=== PATIENT | female | born 1995 | race Caucasian/White ===

== ENCOUNTER 2023-06-27 14:30 | Emergency (ER) | payer OTHER, MEDICAID, SELFPAY ==
[2023-06-27 14:43] VITALS: BP 98/50; PULSE 74; RESP 18; TEMP 36.1; O2SAT 99
--- NOTE | 2023-06-27 17:15 | PC.NURSE ---
Left pedal pulse palpated as strong. Cap refill in left big toe <2 seconds
[2023-06-27] MEDS: KETOROLAC 30 MG/ML VIAL IM (17:38)
[2023-06-27] MEDS: predniSONE 20 MG TABLET 40 MG PO (17:38)
[2023-06-27] MEDS: diazePAM 10 MG/2 ML SYRINGE 5 MG IM (17:39)
--- NOTE | 2023-06-27 18:00 | ED.BACK ---
HPI - Back Pain/Injury <Melonie Cannon PA-C - Last Filed: 06/27/23 18:47> General Chief Complaint: Back Pain/Injury Stated Complaint: siatic nerve extreame pain lower back and side Time Seen by Provider: 06/27/23 17:06 History of Present Illness HPI Narrative: Patient is a 27-year-old female who presents with low back pain and left hip pain. The pain radiates down her left leg. She has a history of low back pain; she reports her pain is usually a 7/10. She does not identify any preceding injury or movement that started this flare of pain. She denies any loss of bowel or bladder control, denies saddle anesthesia. She is not taken any pain medicine today. In the past she has taken Tylenol, ibuprofen, Excedrin and gabapentin. She recently discontinued her gabapentin because she felt like it did not help. She recently moved here and has not yet established with a PCP. Related Data Previous Rx's Medication Instructions Recorded cyclobenzaprine 5 mg tablet 5 mg PO TID PRN muscle spasm #10 06/27/23 tabs prednisone 20 mg tablet 40 mg (2 x 20 mg) PO DAILY #8 tabs 06/27/23 Allergies Allergy/AdvReac Type Severity Reaction Status Date / Time No Known Drug Allergies Allergy Verified 06/27/23 14:45 Review of Systems <Melonie Cannon PA-C - Last Filed: 06/27/23 18:47> Review of Systems ROS Unobtainable: All systems reviewed & are unremarkable except as noted in HPI and below Patient History <Melonie Cannon PA-C - Last Filed: 06/27/23 18:47> Social History Smoking Status: Current every day smoker Smoking Status: Current every day smoker Substance Use Type: marijuana Exam <Melonie Cannon PA-C - Last Filed: 06/27/23 18:47> Narrative Exam Narrative: GENERAL: 27 year old patient appears stated age. Well-developed patient, appears uncomfortable in wheelchair. NEURO: AOx3. HEAD: Atraumatic. Normocephalic. EYES: Pupils equal round and reactive. Extraocular motions intact. No scleral icterus. No injection or drainage. ENT: Nose without bleeding or purulent drainage. Airway patent. RESPIRATORY: No increased work of breathing SPINE: No midline spinal tenderness, pain with palpation of the soft tissues of the left lower back SKIN: No rash or erythema of visible areas Initial Vital Signs Initial Vital Signs: Vital Signs Temperature 97 F L 06/27/23 14:43 Pulse Rate 74 06/27/23 14:43 Respiratory Rate 18 06/27/23 14:43 Blood Pressure 98/50 L 06/27/23 14:43 Pulse Oximetry 99 06/27/23 14:43 Oxygen Delivery Method Room Air 06/27/23 14:43 <Leonides Campbell DO - Last Filed: 06/27/23 18:50> Initial Vital Signs Initial Vital Signs: Vital Signs Temperature 97 F L 06/27/23 14:43 Pulse Rate 74 06/27/23 14:43 Respiratory Rate 18 06/27/23 14:43 Blood Pressure 98/50 L 06/27/23 14:43 Pulse Oximetry 99 06/27/23 14:43 Oxygen Delivery Method Room Air 06/27/23 14:43 Course <Melonie Cannon PA-C - Last Filed: 06/27/23 18:47> Orders Ordered: Discontinued Medications Diazepam (Diazepam 10 Mg/2 Ml Syringe) 5 mg IM NOW ONE Stop: 06/27/23 17:21 Last Admin: 06/27/23 17:39 Dose: 5 mg Documented By: PRANAV Ketorolac Tromethamine (Ketorolac 30 Mg/Ml Vial) 30 mg IM NOW ONE Stop: 06/27/23 17:21 Last Admin: 06/27/23 17:38 Dose: 30 mg Documented By: PRANAV Prednisone (Prednisone 20 Mg Tablet) 40 mg PO NOW ONE Stop: 06/27/23 17:21 Last Admin: 06/27/23 17:38 Dose: 40 mg Documented By: SB Vital Signs Vital signs: Vital Signs - 8 hr 06/27/23 14:43 06/27/23 18:10 06/27/23 18:32 Temperature 97 F L Pulse Rate 74 64 69 Respiratory Rate 18 18 14 Blood Pressure 98/50 L 110/56 L 105/65 Pulse Oximetry 99 98 99 Oxygen Delivery Method Room Air Room Air Room Air <DO Patrizia Malave Last Filed: 06/27/23 18:50> Orders Ordered: Discontinued Medications Diazepam (Diazepam 10 Mg/2 Ml Syringe) 5 mg IM NOW ONE Stop: 06/27/23 17:21 Last Admin: 06/27/23 17:39 Dose: 5 mg Documented By: SB Ketorolac Tromethamine (Ketorolac 30 Mg/Ml Vial) 30 mg IM NOW ONE Stop: 06/27/23 17:21 Last Admin: 06/27/23 17:38 Dose: 30 mg Documented By: SB Prednisone (Prednisone 20 Mg Tablet) 40 mg PO NOW ONE Stop: 06/27/23 17:21 Last Admin: 06/27/23 17:38 Dose: 40 mg Documented By: SB Vital Signs Vital signs: Vital Signs - 8 hr 06/27/23 14:43 06/27/23 18:10 06/27/23 18:32 Temperature 97 F L Pulse Rate 74 64 69 Respiratory Rate 18 18 14 Blood Pressure 98/50 L 110/56 L 105/65 Pulse Oximetry 99 98 99 Oxygen Delivery Method Room Air Room Air Room Air MDM - Back Pain/Injury <Melonie Cannon PA-C - Last Filed: 06/27/23 18:47> MDM Narrative Medical decision making narrative: Multiple etiologies for patient's symptoms considered including, but not limited to: Musculoskeletal low back pain, fracture, dislocation, disc injury No red flags for cauda equina, no acute injury/trauma to suggest bony injury. Discussed possible treatment strategies. Patient would like to try Toradol, prednisone and Valium. Medications administered and patient tolerated well. She is anxious to go home and take care of her kids. I will send prescriptions for steroids and muscle relaxers to her pharmacy-discussed safety precautions in terms of combining medications. Patient states understanding. Encouraged her to establish care with a primary care for further evaluation and treatment of her chronic back pain. Discharge Plan Departure Patient Disposition: Home Clinical Impression: Acute back pain with sciatica Qualifiers: Laterality: left Qualified Code(s): M54.42 - Lumbago with sciatica, left side Instructions: DI for Back Pain With Sciatica Activity Restrictions/Additional Instructions: *You have been diagnosed with low back pain with sciatica. Please continue to take ibuprofen 600mg every 6 hours and apply ice for 15 minutes every 2 hours while awake. I strongly encourage you to establish care with a primary care provider and seek further diagnostics for your chronic low back pain. *What to do: *Please continue to take your regular medications as directed. [x] New medication prescriptions sent to your pharmacy: [[facility]] [ ] New medication written as a paper prescription [ ] No new medications given *Please follow up with your primary care provider in 2-3 days, call for an appointment. Let them know you were seen in the Emergency Department and that we ask that you be seen in follow up. We will electronically transmit a record of today's note if your PCP is in our system *If you do not have a primary care provider please contact the [facility] Resource line at [phone]. They will ask some questions about your medical history and help get you set up with a doctor in the community. *Return to Emergency Department if you should have any new, worsening or concerning symptoms, such as [fever greater than 101 F, shaking chills, worsening pain, persistent vomiting or other concerning symptoms]. Prescriptions: New cyclobenzaprine 5 mg tablet 5 mg PO TID PRN (Reason: muscle spasm) Qty: 10 0RF prednisone 20 mg tablet 40 mg PO DAILY Qty: 8 0RF Stand Alone Forms: Patient Portal/API ED Sign-out <Leonides Campbell, DO - Last Filed: 06/27/23 18:50> [facility] Dr Campbell Co-Sign Statement: I was available for consultation during this patient's emergency department visit. This chart is signed by myself for administrative purposes only. I did not have direct contact with this patient during this visit. They were seen independently by the APC.
[2023-06-27 18:10] VITALS: BP 110/56; PULSE 64; RESP 18; O2SAT 98
[2023-06-27 18:32] VITALS: BP 105/65; PULSE 69; RESP 14; O2SAT 99
== END 2023-06-27 18:34 | disposition home or self-care (01) ==
PROVIDERS: Emergency Provider Physician Assistant
DX: M54.42 Lumbago with sciatica, left side (principal)
CPT/HCPCS: 96372; 99283; J1885; J3360

== ENCOUNTER 2023-11-28 14:37 | Emergency (ER) | payer OTHER, MEDICAID, SELFPAY ==
[2023-11-28 14:52] VITALS: BP 113/51; PULSE 88; RESP 20; TEMP 37; O2SAT 98; BMI 17.8
[2023-11-28 16:29] VITALS: BP 103/52; PULSE 77; RESP 20; O2SAT 100
--- NOTE | 2023-11-28 16:31 | ED_ITS ---
HPI - Headache <Melonie Rosales PA-C - Last Filed: 11/29/23 19:55> General Chief Complaint: Headache Stated Complaint: neck, jaw and ear pain Time Seen by Provider: 11/28/23 15:49 Mode of arrival: Ambulatory History of Present Illness HPI Narrative: 28-year-old female with history of migraines with no previous prescription for migraine medication presents with concern for right ear jaw and right face pain for the past 6 days. Patient states it has been worsening and has become so severe that she can not tolerate it anymore hence coming into the emergency department. She is unsure exactly where it started but thinks it is mostly centered at the back of her jaw at this time. She does state it seems worse with eating or with moving her jaw. She says that she did have headache that felt similar to severe headaches/migraines that she has had in the past that was on the right side behind her right eye and in her right cheek but then her symptoms change to be more in her jaw in the back on the right and also with pain radiating and shooting into her right ear. She also describes tension at the back of her head at the base of her head where her neck meets her head. She feels she has muscle tightness there. She did recently have an upper respiratory infection with cough and congestion which has largely resolved. She denies fevers, chills, numbness or tingling of her face, one-sided weakness, speech changes or any other symptoms. Related Data Previous Rx's Medication Instructions Recorded cyclobenzaprine 5 mg tablet 5 mg PO TID PRN muscle spasm #10 06/27/23 tabs prednisone 20 mg tablet 40 mg (2 x 20 mg) PO DAILY #8 tabs 06/27/23 amoxicillin 875 mg-potassium 1 tab PO Q12H 10 days #20 tabs 11/28/23 clavulanate 125 mg tablet ondansetron 4 mg disintegrating 4 mg PO Q8H PRN nausea and 11/28/23 tablet vomiting 7 days #21 tabs huaqwvc-dkhfcvuwex-ZXR-caffeine 30 1 cap PO Q4-6H PRN headache #21 11/29/23 mg-50 mg-325 mg-40 mg capsule caps Allergies Allergy/AdvReac Type Severity Reaction Status Date / Time No Known Drug Allergies Allergy Verified 06/27/23 14:45 Review of Systems <Melonie Rosales PA-C - Last Filed: 11/29/23 19:55> Review of Systems Narrative: See HPI Patient History <Melonie Rosales PA-C - Last Filed: 11/29/23 19:55> Social History Smoking Status: Current every day smoker Smoking Status: Current every day smoker tobacco type: cigarettes alcohol intake frequency: holidays/special occasions only Substance Use Type: marijuana Exam <Melonie Rosales PA-C - Last Filed: 11/29/23 19:55> Narrative Exam Narrative: GENERAL: [28] year old patient appears stated age. Well-developed patient, in moderate distress; rocking and holding her face with her hand on the right. HEAD: Atraumatic. Normocephalic. EYES: Pupils equal round and reactive. Extraocular motions intact. No scleral icterus. No injection or drainage. There is tenderness present of the right maxillary sinus exquisitely tender with palpation and percussion, some tenderness present at the TMJ. Bilateral ear canals have clear fluid effusions with bubbles present no bulging or retraction. Patient has some pain with manipulation of the pinna and tragus on the right. There is no mastoid tenderness inflammation or swelling. No lymphadenopathy noted. Right frontal sinus is mildly tender with palpation/percussion ENT: Nose without bleeding, purulent drainage. Throat without erythema, tonsillar hypertrophy or exudate. Airway patent. NECK: Trachea midline. Non tender CARDIOVASCULAR: Regular rate and rhythm without murmurs, gallops, or rubs. RESPIRATORY: Clear to auscultation. Breath sounds equal bilaterally. No wheezes, rales, or rhonchi. EXTREMITIES: No edema or joint tenderness. BACK: Neck is pain-free with normal range of motion no nuchal rigidity, there is some tenderness with palpation of the base of the skull posteriorly upper neck muscles/paraspinal. Nontender without deformity or crepitance. No flank tenderness. NEURO: AOx3. SKIN: No rash or erythema of visible areas Initial Vital Signs Initial Vital Signs: Vital Signs Temperature 98.6 F 11/28/23 14:52 Pulse Rate 88 11/28/23 14:52 Respiratory Rate 20 11/28/23 14:52 Blood Pressure 113/51 L 11/28/23 14:52 Pulse Oximetry 98 11/28/23 14:52 Oxygen Delivery Method Room Air 11/28/23 14:52 <Patricia Alberts MD - Last Filed: 11/30/23 20:37> Initial Vital Signs Initial Vital Signs: Vital Signs Temperature 98.6 F 11/28/23 14:52 Pulse Rate 88 11/28/23 14:52 Respiratory Rate 20 11/28/23 14:52 Blood Pressure 113/51 L 11/28/23 14:52 Pulse Oximetry 98 11/28/23 14:52 Oxygen Delivery Method Room Air 11/28/23 14:52 Course <Melonie Rosales PA-C - Last Filed: 11/29/23 19:55> Orders Ordered: Discontinued Medications Dexamethasone (Dexamethasone 10 Mg/Ml Vial) 10 mg IV NOW ONE Stop: 11/28/23 16:47 Last Admin: 11/28/23 17:01 Dose: 10 mg Documented By: SALLY Diphenhydramine HCl (Diphenhydramine 50 Mg/Ml Vial) 25 mg IV NOW ONE Stop: 11/28/23 16:47 Last Admin: 11/28/23 17:02 Dose: 25 mg Documented By: SALLY Sodium Chloride (Normal Saline 0.9%) 1,000 mls @ 1,000 mls/hr IV BOLUS ONE Stop: 11/28/23 17:45 Last Infusion: 11/28/23 18:07 Dose: Infused Documented By: Admin: 11/28/23 17:04 Dose: 1,000 mls/hr Documented By: SALLY Ketorolac Tromethamine (Ketorolac 30 Mg/Ml Vial) 15 mg IV NOW ONE Stop: 11/28/23 16:47 Last Admin: 11/28/23 17:00 Dose: 15 mg Documented By: SALLY Metoclopramide HCl (Metoclopramide 10 Mg/2 Ml Inj) 5 mg IV NOW ONE Stop: 11/28/23 16:47 Last Admin: 11/28/23 16:58 Dose: 5 mg Documented By: NL Vital Signs Vital signs: Vital Signs - 8 hr 11/28/23 14:52 Temperature 98.6 F Pulse Rate 88 Respiratory Rate 20 Blood Pressure 113/51 L Pulse Oximetry 98 Oxygen Delivery Method Room Air <Patricia Alberts MD - Last Filed: 11/30/23 20:37> Orders Ordered: Discontinued Medications Dexamethasone (Dexamethasone 10 Mg/Ml Vial) 10 mg IV NOW ONE Stop: 11/28/23 16:47 Last Admin: 11/28/23 17:01 Dose: 10 mg Documented By: SALLY Diphenhydramine HCl (Diphenhydramine 50 Mg/Ml Vial) 25 mg IV NOW ONE Stop: 11/28/23 16:47 Last Admin: 11/28/23 17:02 Dose: 25 mg Documented By: SALLY Sodium Chloride (Normal Saline 0.9%) 1,000 mls @ 1,000 mls/hr IV BOLUS ONE Stop: 11/28/23 17:45 Last Infusion: 11/28/23 18:07 Dose: Infused Documented By: Admin: 11/28/23 17:04 Dose: 1,000 mls/hr Documented By: SALLY Ketorolac Tromethamine (Ketorolac 30 Mg/Ml Vial) 15 mg IV NOW ONE Stop: 11/28/23 16:47 Last Admin: 11/28/23 17:00 Dose: 15 mg Documented By: SALLY Metoclopramide HCl (Metoclopramide 10 Mg/2 Ml Inj) 5 mg IV NOW ONE Stop: 11/28/23 16:47 Last Admin: 11/28/23 16:58 Dose: 5 mg Documented By: SALLY Vital Signs Vital signs: Vital Signs - 8 hr 11/28/23 14:52 Temperature 98.6 F Pulse Rate 88 Respiratory Rate 20 Blood Pressure 113/51 L Pulse Oximetry 98 Oxygen Delivery Method Room Air MDM - Headache <Melonie Rosales PA-C - Last Filed: 11/29/23 19:55> Differential Diagnosis Differential diagnosis: Likely migraine, tension headache, headache, sinusitis and other (Bacterial sinusitis) Lab Data Attestation: I reviewed the patient's lab results. MDM Narrative Medical decision making narrative: This is a 28-year-old female presenting with concern for possible migraine, headache in the setting of upper respiratory infection recently, with right- sided jaw ear and face pain. Patient has no inflammation present suggesting a abscess or cellulitis. She does have fluid effusions bilaterally in the middle ear, she also has maxillary and frontal sinus tenderness. The teeth are without tenderness and there is no swelling of the gums. Etiology of her pain and symptoms is not entirely clear, she is treated with a migraine cocktail in the emergency department and does have improvement of her symptoms. Prescription for codeine butalbital ASA caffeine as well as prescription for Augmentin as have some concern this could be a sinus infection. Patient is advised to follow up closely with PCP, return to the emergency department if she has persistent or worsening symptoms. Based on exam and history I have low suspicion for meningitis. Return precautions provided, follow-up plan discussed, all questions answered Discharge Plan Departure Patient Disposition: Home Clinical Impression: Mandible pain, Acute effusion of both middle ears Migraine Qualifiers: Migraine type: unspecified Status migrainosus presence: without status migrainosus Intractability: not intractable Qualified Code(s): G43.909 - Migraine, unspecified, not intractable, without status migrainosus Instructions: DI for Migraine Activity Restrictions/Additional Instructions: *You have been diagnosed with [migraine, jaw pain] *What to do: *Please continue to take your regular medications as directed. [2 ] New medication prescriptions sent to your pharmacy: [Fioricet for headache/migraine pain, Augmentin antibiotic] [ ] New medication written as a paper prescription [ ] No new medications given *Please follow up with your primary care provider in 2-3 days, call for an appointment. Let them know you were seen in the Emergency Department and that we ask that you be seen in follow up. We will electronically transmit a record of today's note if your PCP is in our system. You came in today with concern for worsening pain in your right back jaw right cheek and pain radiating to her right ear. You do have fluid effusions behind both ears but these do not look infected. I am concerned you may have a sinus infection which could be con tributing to her symptoms. Other potential sources of your symptoms could include TMJ, or a dental infection. We did treat you for a migraine today and your symptoms improved quite a bit in the emergency department. I am prescribing you medicine for migraine and also an antibiotic to treat if this is a dental or sinus infection. Please take the antibiotic for the full course even if you are feeling better. If you develop new symptoms or ear pain returns and is too severe to eat or worsens and is not controlled with [id number] medicines and or the Fioricet prescribed please make sure you get re-evaluated. *If you do not have a primary care provider please contact the [facility] Resource line at [phone]. They will ask some questions about your medical history and help get you set up with a doctor in the community. *Return to Emergency Department if you should have any new, worsening or concerning symptoms, such as [fever greater than 101 F, shaking chills, worseni ng pain, persistent vomiting or other bothersome symptoms] Prescriptions: New amoxicillin-pot clavulanate 875-125 mg tablet 1 tab PO Q12H 10 Days Qty: 20 0RF ondansetron 4 mg tablet,disintegrating 4 mg PO Q8H PRN (Reason: nausea and vomiting) 7 Days Qty: 21 0RF colhcsv-hooxtmjdwy-JRQ-caff [id number] mg capsule 1 cap PO Q4-6H PRN (Reason: headache) Qty: 21 0RF No Action cyclobenzaprine 5 mg tablet 5 mg PO TID PRN (Reason: muscle spasm) Qty: 10 0RF prednisone 20 mg tablet 40 mg PO DAILY Qty: 8 0RF Referrals: Miscellaneous,Doctor, [Primary Care Provider] - Stand Alone Forms: Patient Portal/API ED Sign-out <Patricia Alberts MD - Last Filed: 11/30/23 20:37> Cosign ED Attending Cosignature Attestation: I did not see this patient. I was available all times for consultation.
[2023-11-28] MEDS: METOCLOPRAMIDE 10 MG/2 ML INJ 5 MG IV (16:58)
[2023-11-28] MEDS: KETOROLAC 30 MG/ML VIAL 15 MG IV (17:00)
[2023-11-28] MEDS: DEXAMETHASONE 10 MG/ML VIAL IV (17:01)
[2023-11-28] MEDS: diphenhydrAMINE 50 MG/ML VIAL 25 MG IV (17:02)
[2023-11-28] MEDS: SODIUM CHLORIDE 0.9% 1,000 ML 1000 ML IV (17:04)
--- NOTE | 2023-11-28 17:19 | PC.NURSE ---
pt states she has a pain, points to in front of ear/jaw joint. it shoots into her ear and down under her jaw and around to the back of her head/neck. states it hurts to open her jaw so she has not been eating or drinking too much. patient is talking with little to no jaw movement, clutching the side of her face. states she has headache that is in front but also in the occipital region. tender upon palpation to frontal sinuses and maxillary. denies ear pain on left side. pt has taken ibuprofen and tylenol at home with no relief, tried warm and cold compresses, and tried laying in dark room with little stimuli. pt is here for help to manage this pain. pt is rocking back in forth in chair, tapping foot on ground and whimpering while clutching face during entire exam.
[2023-11-28 18:07] VITALS: BP 99/54; PULSE 70; RESP 16; O2SAT 99
== END 2023-11-28 18:11 | disposition home or self-care (01) ==
PROVIDERS: Emergency Provider Student in an Organized Health Care Education/Training Program
DX: G43.909 Migraine, unspecified, not intractable, without status migrainosus (principal); H93.8X3 Other specified disorders of ear, bilateral
CPT/HCPCS: 36415; 96374; 96375; 99283; 99284; J1100; J1200; J1885; J2765

== ENCOUNTER 2024-08-11 19:47 | Emergency (ER) | payer OTHER, SELFPAY ==
[2024-08-11 19:50] VITALS: BP 130/72; PULSE 65; RESP 22; TEMP 36.6; O2SAT 97; BMI 17.6
--- NOTE | 2024-08-11 23:05 | ED.HA ---
HPI - Headache General Chief Complaint: Headache Stated Complaint: migraine t-4 Time Seen by Provider: 08/11/24 23:04 Mode of arrival: Ambulatory History of Present Illness HPI Narrative: Patient is a healthy 28-year-old female history of migraine headaches. Presenting today with headache. Reports has been ongoing for the last 4 days she has been taking Tylenol it has not really helping. She previously was prescribed migraine medication which helped a lot but she does not know what it is in his out of it. She does not have any nausea or vomiting. She was sitting in a dark room very sensitive to light. This feels like a typical migraine headache for her. No fever chills no significant neck pain Related Data Previous Rx's Medication Instructions Recorded cyclobenzaprine 5 mg tablet 5 mg PO TID PRN muscle spasm #10 06/27/23 tabs prednisone 20 mg tablet 40 mg (2 x 20 mg) PO DAILY #8 tabs 06/27/23 oaonjau-diyxresrob-XAV-caffeine 30 1 cap PO Q4-6H PRN headache #21 11/29/23 mg-50 mg-325 mg-40 mg capsule caps Allergies Allergy/AdvReac Type Severity Reaction Status Date / Time No Known Drug Allergies Allergy Verified 06/27/23 14:45 Patient History Social History Smoking Status: Current every day smoker Smoking Status: Current every day smoker tobacco type: cigarettes and vaping alcohol intake frequency: holidays/special occasions only Exam Initial Vital Signs Initial Vital Signs: Vital Signs Temperature 97.8 F 08/11/24 19:50 Pulse Rate 65 08/11/24 19:50 Respiratory Rate 22 08/11/24 19:50 Blood Pressure 130/72 08/11/24 19:50 Pulse Oximetry 97 08/11/24 19:50 Oxygen Delivery Method Room Air 08/11/24 19:50 GENERAL: Alert 28-year-old female in dark room appears uncomfortable and in no acute distress. HEENT: Head atraumatic,EOMI, pupils reactive, face symmetric, moist mucous membranes NECK supple no vertebral tenderness CARDIOVASCULAR: Regular rate and rhythm without murmurs, rubs or gallops. RESPIRATORY: Breath sounds equal bilaterally, no wheezes rales or rhonchi. ABDOMEN: Soft, nontender. Normoactive bowel sounds all 4 quadrants. No guarding or rebound. EXTREMITIES: Normal range of motion, no clubbing or edema. Neurovascularly intact NEUROLOGICAL: Alert and oriented x4.Normal gait and speech. Cranial nerves II through XII grossly intact. Strategy Consultant strength equal bilaterally SKIN: Warm, dry, no laceration, no petechiae, no rashes or lesions. Course Orders Ordered: Discontinued Medications Diphenhydramine HCl (Diphenhydramine 50 Mg/Ml Vial) 25 mg IV NOW ONE Stop: 08/11/24 23:10 Last Admin: 08/11/24 23:22 Dose: 25 mg Documented By: KOLE Ketorolac Tromethamine (Ketorolac 30 Mg/Ml Vial) 15 mg IV NOW ONE Stop: 08/11/24 23:10 Last Admin: 08/11/24 23:23 Dose: 15 mg Documented By: KOLE Lorazepam (Lorazepam 2 Mg/Ml Inj) 0.5 mg IV NOW ONE Stop: 08/11/24 23:42 Prochlorperazine (Prochlorperazine 10 Mg/2 Ml Vial) 10 mg IV NOW ONE Stop: 08/11/24 23:10 Last Admin: 08/11/24 23:24 Dose: 10 mg Documented By: KOLE Vital Signs Vital signs: Vital Signs - 8 hr 08/11/24 19:50 08/11/24 23:28 Temperature 97.8 F Pulse Rate 65 52 L Respiratory Rate 22 16 Blood Pressure 130/72 103/57 L Pulse Oximetry 97 97 Oxygen Delivery Method Room Air Room Air MDM - Headache Lab Data Labs: Point of Care Testing Test Results Negative [facility] Narrative Medical decision making narrative: 28-year-old female history of migraines presenting today with a migraine ongoing for 4 days. She has in a dark room appears uncomfortable no significant nausea or vomiting. She has no focal deficits. At this time no need for head CT. She was given Toradol Benadryl and Compazine almost immediately after she started feeling very anxious she wanted to leave. She denies feeling like her skin is crawling. Not sure if this is extrapyramidal effects versus just worsening anxiety. I have spoken with her offered her more medication. She gets very anxious with medication. At this time she really just wants to go home. This seems to be a typical migraine headache. No need for blood work imaging or further workup. Discharge Plan Departure Patient Disposition: Home Clinical Impression: Migraine Instructions: DI for Migraine Activity Restrictions/Additional Instructions: *You have been diagnosed with migraine *What to do: Hope you go home sleep in the your headache feels better. Make sure that you stay hydrated *Continue to take medications as directed Tylenol Motrin as needed for pain *Follow up with your primary care provider in 2-3 days or call [phone] *Return to ER if you should have worsening pain persistent vomiting or any new, worsening or concerning symptoms Prescriptions: No Action cyclobenzaprine 5 mg tablet 5 mg PO TID PRN (Reason: muscle spasm) Qty: 10 0RF prednisone 20 mg tablet 40 mg PO DAILY Qty: 8 0RF xuwqqel-vlecyhvpsr-VRW-caff [id number] mg capsule 1 cap PO Q4-6H PRN (Reason: headache) Qty: 21 0RF Referrals: Miscellaneous,Doctor, [Primary Care Provider] - Stand Alone Forms: Patient Portal/API/Survey
[2024-08-11] MEDS: diphenhydrAMINE 50 MG/ML VIAL 25 MG IV (23:22)
[2024-08-11] MEDS: KETOROLAC 30 MG/ML VIAL 15 MG IV (23:23)
[2024-08-11] MEDS: PROCHLORPERAZINE 10 MG/2 ML VIAL IV (23:24)
[2024-08-11 23:28] VITALS: BP 103/57; PULSE 52; RESP 16; O2SAT 97
--- NOTE | 2024-08-11 23:45 | PC.NURSE ---
Patient states wanting to go home, patient;s mother at bedside. Patient alert and states feeling anxious. Physician aware.
== END 2024-08-11 23:55 | disposition home or self-care (01) ==
PROVIDERS: Emergency Provider Emergency Medicine
DX: G43.909 Migraine, unspecified, not intractable, without status migrainosus (principal)
CPT/HCPCS: 36415; 81025; 96374; 96375; 99284; J0780; J1200; J1885

== ENCOUNTER 2025-01-28 12:46 | Emergency (ER) | payer OTHER, SELFPAY ==
--- NOTE | 2025-01-28 13:41 | PC.NURSE ---
called for patient at 1315, no answer, no answer now either.
== END 2025-01-28 14:24 | disposition left against medical advice (07) ==
PROVIDERS: Emergency Provider Emergency Medicine